=== PATIENT | female | born 1955 | race Caucasian/White ===

== ENCOUNTER 2020-03-27 07:38 | Day surgery (SDC) | payer OTHER ==
[2020-03-10 09:15] VITALS: BP 202/94
[~2020-03-27] VITALS: Ht 160 cm; Wt 107.0 kg
[2020-03-27 08:06] VITALS: BP 183/92
[2020-03-27] MEDS ORDERED: SODIUM CHLORIDE 0.9% 1,000 ML IV SCH (08:30)
[2020-03-27] MEDS ORDERED: ATOR40TA78 PO (08:31)
[2020-03-27] MEDS ORDERED: BUME1TAB21 PO (08:31)
[2020-03-27] MEDS ORDERED: LISI40TA PO (08:31)
[2020-03-27] MEDS ORDERED: GLIP2.5T3 PO (08:31)
[2020-03-27] MEDS ORDERED: CLON0.1T22 PO (08:31)
[2020-03-27] MEDS ORDERED: CARV12.52 PO (08:31)
[2020-03-27] MEDS ORDERED: POTASSIUM PO (08:31)
[2020-03-27] MEDS ORDERED: METF10007 PO (08:31)
[2020-03-27 09:09] LABS: INTERNATIONAL NORMALIZED RATIO 1.08 (0.93-1.1); PROTHROMBIN TIME 11.4 Seconds (9.6-11.5)
[2020-03-27 10:32] VITALS: BP 101/68
[2020-03-27] MEDS ORDERED: FLUMAZENIL 0.1 MG/1 ML, 5ML ONE (11:10)
[2020-03-27] MEDS ORDERED: MIDAZOLAM 1 MG/ML, 5ML ONE (11:10)
[2020-03-27] MEDS ORDERED: FENTANYL PF 100 MCG/2ML ONE (11:10)
[2020-03-27] MEDS ORDERED: NALOXONE 1 MG/ML, 2ML ONE (11:10)
== END 2020-03-27 13:15 | disposition home or self-care (01) ==
LOC: OUT 07:38
PROVIDERS: ATTEND Internal Medicine Nephrology
DX: R80.9 Proteinuria, unspecified (principal); E11.22 Type 2 diabetes mellitus with diabetic chronic kidney disease; I12.9 Hypertensive chronic kidney disease with stage 1 through stage 4 chronic kidney disease, or unspecified chronic kidney disease; N18.1 Chronic kidney disease, stage 1; N17.0 Acute kidney failure with tubular necrosis; J45.909 Unspecified asthma, uncomplicated; E83.52 Hypercalcemia; Z79.01 Long term (current) use of anticoagulants; Z79.84 Long term (current) use of oral hypoglycemic drugs; Z79.899 Other long term (current) drug therapy; Z88.8 Allergy status to other drugs, medicaments and biological substances; Z91.013 Allergy to seafood
CPT/HCPCS: 36415; 50200; 77012; 85610; 88300; 99156; 99157; J2250; J3010; J7030; J2310